=== PATIENT | male | born 2000 | race African-American/Black ===

== ENCOUNTER 2022-04-25 06:04 | Emergency (ER) | payer OTHER ==
[~2022-04-25] VITALS: Ht 165.1 cm; Wt 49.9 kg
[2022-04-25 06:07] VITALS: BP 118/59
--- NOTE | 2022-04-25 06:07 | NUR ---
Patient taken to chair B.
[2022-04-25 06:10] VITALS: BP 118/59
--- NOTE | 2022-04-25 06:14 | NUR ---
Dr. Raygoza examining patient.
--- NOTE | 2022-04-25 06:40 | NUR ---
Patient D/C to custody,
== END 2022-04-25 06:40 ==
LOC: MED 06:04
DX: Z02.89 Encounter for other administrative examinations (principal); V89.2XXA Person injured in unspecified motor-vehicle accident, traffic, initial encounter; Y93.89 Activity, other specified; Y92.411 Interstate highway as the place of occurrence of the external cause; Y99.8 Other external cause status
CPT/HCPCS: 99283